=== PATIENT | female | born 1985 | race Caucasian/White ===

== ENCOUNTER 2024-03-06 15:16 | Emergency (ER) | payer OTHER, SELFPAY ==
[2024-03-06 15:28] VITALS: BP 138/79; PULSE 65; RESP 16; TEMP 36.7; O2SAT 100
--- NOTE | 2024-03-06 16:29 | ED.FEMALEGU ---
HPI - Female Genitourinary General Chief complaint: Urogenital-Female Stated complaint: poss yeast infection Time Seen by Provider: 03/06/24 16:20 Source: patient and RN notes reviewed Mode of arrival: ambulatory Limitations: no limitations History of Present Illness HPI Narrative: Patient presents today complaining of 5 day history of mild vaginal itching and discomfort. Denies pain. Denies concerns for STDs. She denies any urinary symptoms to include frequency, urgency, dysuria, hematuria, abdominal pain. She has tried some vaginal Monistat for the last couple of days without relief. She is diabetic and stated that her blood sugars have been fairly labile recently due to food intake. Related Data Home Medications ?Medication ?Instructions ?Recorded ?Confirmed ?Last Taken ?Type amlodipine 5 mg tablet mg 03/06/24 Unknown History fluoxetine 20 mg capsule mg 03/06/24 Unknown History tirzepatide 10 mg/0.5 mL mg subcut 03/06/24 Unknown History subcutaneous pen injector (Mounjaro) Allergies Allergy/AdvReac Type Severity Reaction Status Date / Time No Known Allergies Allergy Verified 03/06/24 15:30 Review of Systems Review of Systems: CONSTITUTIONAL: Denies body aches, fever, chills, or sweats. EYES: Denies visual changes, redness, or discharge. ENT: Denies rhinorrhea, congestion, sore throat, or otalgia. CARDIOVASCULAR: Denies chest pain, palpitations, or edema. RESPIRATORY: Denies cough or dyspnea. GASTROINTESTINAL: Denies abdominal pain, nausea, vomiting, or diarrhea. GENITOURINARY: Denies dysuria or hematuria. + mild vaginal itching and discomfort SKIN: Denies rash, itching, or wounds. MUSCULOSKELETAL: Denies back pain, joint pain, or myalgia. NEUROLOGIC: Denies headache, numbness, tingling, or weakness. PSYCH: Denies depression or anxiety. [facility] Past Medical History Medical History (Updated 03/06/24 @ 16:34 by Christi Solo, [employer], ) Diabetes Comments At time of signature, I have reviewed and agree with nursing past medical, surgical, social and family history unless otherwise noted. Please see nursing chart for further information. There is no relevant family history pertinent to the presenting complaint Exam Narrative: GENERAL: Well-appearing, well-nourished, and in no acute distress. HEAD: Normocephalic, atraumatic. EYES: EOMI. No redness or drainage. Conjunctivae normal. ENT: Mucous membranes pink and moist. NECK: Normal AROM. CHEST: No respiratory distress. : Pelvic exam deferred EXTREMITIES: Normal range of motion. No edema. SKIN: Warm, dry, no rash. Capillary refill normal. Normal skin turgor. NEURO: No focal deficits. Alert and oriented x3. Gait steady. PSYCH: Normal affect. No signs of depression or anxiety. Course Course Level of Care: Express Care Visit Vital Signs Vital signs: Vital Signs Temperature 98.1 F 03/06/24 15:28 Pulse Rate 65 03/06/24 15:28 Respiratory Rate 16 03/06/24 15:28 Blood Pressure 138/79 03/06/24 15:28 Pulse Oximetry 100 03/06/24 15:28 Oxygen Delivery Room Air 03/06/24 15:28 Temperature 98.1 F 03/06/24 15:28 Pulse Rate 65 03/06/24 15:28 Respiratory Rate 16 03/06/24 15:28 Blood Pressure 138/79 03/06/24 15:28 Pulse Oximetry 100 03/06/24 15:28 Oxygen Delivery Room Air 03/06/24 15:28 Reviewed MDM - Female Genitourinary MDM Narrative Medical decision making narrative: Patient will be treated with a course of fluconazole for presumed candidal vaginitis. Patient has been instructed to follow-up with her OBGYN if symptoms do not improve. Anticipatory guidance given. Differential Diagnosis Differential diagnosis: Likely bacterial vaginosis and vaginitis Critical Care Time Critical Care Time Critical Care Time: No Discharge Plan Discharge Clinical Impression: Vaginitis Qualifiers: Chronicity: acute Qualified Code(s): N76.0 - Acute vaginitis Patient Disposition: Home, Self-Care Condition: Stable Additional Instructions: Please take the fluconazole as prescribed. Follow-up with your PCP if symptoms are not improving. Your blood pressure was elevated above 120/80 today at Urgent Care. This puts you above the threshold for follow up. Please schedule a followup visit with your personal physician as soon as possible, for further evaluation and treatment. Even blood pressure exceeding 120/80 may indicate pre-hypertension. Patient Language: Italian Prescriptions: New fluconazole 150 mg tablet 150 mg PO Q72H Qty: 2 0RF No Action amlodipine 5 mg tablet fluoxetine 20 mg capsule Mounjaro 10 mg/0.5 mL pen injector SUBCUT Follow-up/Referrals: PHYSICIAN NOT ON STAFF,NONSTAFF [Primary Care Provider] - Time of Disposition: 16:35
== END 2024-03-06 16:40 | disposition home or self-care (01) ==
PROVIDERS: Emergency Provider Nurse Practitioner
DX: N76.0 Acute vaginitis (principal); E11.9 Type 2 diabetes mellitus without complications; Z79.899 Other long term (current) drug therapy
CPT/HCPCS: 99213; G0463